=== PATIENT | male | born 1955 | race Caucasian/White ===

== ENCOUNTER 2017-08-17 16:58 | Emergency (ER) | payer MEDICAID ==
[~2017-08-17] VITALS: Ht 172.7 cm; Wt 95.5 kg
[2017-08-17] MEDS ORDERED: naproxen 500mg tablet PO ONE (18:55)
[2017-08-17] MEDS ORDERED: HYDROcodone/acetaminophen 10/325mg tab PO ONE (18:55)
[2017-08-17] MEDS ORDERED: CYCL-1 PO (19:37)
[2017-08-17] MEDS ORDERED: HYDR-565 PO (19:37)
[2017-08-17] MEDS ORDERED: NAPR-56 PO (19:37)
[2017-08-17] MEDS ORDERED: meperidine/PF 50mg/ml syringe IM ONE (19:50)
[2017-08-17 19:58] VITALS: BP 182/103
== END 2017-08-17 20:07 | disposition home or self-care (01) ==
LOC: ER 16:59
DX: S63.501A Unspecified sprain of right wrist, initial encounter (principal); M25.461 Effusion, right knee; Z79.899 Other long term (current) drug therapy; W11.XXXA Fall on and from ladder, initial encounter; Y93.89 Activity, other specified; Y92.89 Other specified places as the place of occurrence of the external cause; Y99.8 Other external cause status
CPT/HCPCS: 29125; 70450; 72125; 73110; 73564; 96372; 99284; A6449; J2175

== ENCOUNTER 2019-09-15 11:35 | Emergency (ER) | payer MEDICAID ==
[~2019-09-15] VITALS: Ht 172.7 cm; Wt 98.0 kg
[~2019-09-15 11:35] MED LIST: CYCL-1 PO
[2019-09-15] MEDS ORDERED: amLODIPine 5mg tablet PO ONE (12:35)
[2019-09-15] MEDS ORDERED: HYDROchlorothiazide 25mg tablet PO ONE (12:35)
[2019-09-15] MEDS ORDERED: amLODIPine 2.5mg tablet PO ONE (12:40)
[2019-09-15 13:11] LABS: BASOPHILS % (AUTO) 0.4 % (0-1); EOSINOPHILS # (AUTO) 0.1 X10'3 (0-0.9); EOSINOPHILS % (AUTO) 1.5 % (0-6); HEMATOCRIT 44.7 % (42.0-52.0); LYMPHOCYTES # (AUTO) 1.8 X10'3 (1.1-4.8); LYMPHOCYTES % (AUTO) 20.7 % (21-51); MEAN CORPUSCULAR HGB CONC 33.5 g/dL (33.0-36.5); MEAN CORPUSCULAR VOLUME 83.4 FL (78-98); MEAN PLATELET VOLUME 6.9 FL (7.4-10.4); MONOCYTES # (AUTO) 0.8 X10'3 (0-0.9); MONOCYTES % (AUTO) 9.6 % (2-12); NEUTROPHILS # (AUTO) 5.8 X10'3 (1.8-7.7); NEUTROPHILS % (AUTO) 67.8 % (42-75); PLATELET COUNT 282 X10'3 (140-440); RED BLOOD COUNT 5.36 X10'6 (4.70-6.10); RED CELL DISTRIBUTION WIDTH 13.6 % (11.5-14.5); WHITE BLOOD COUNT 8.6 X10'3 (4.5-11.0)
[2019-09-15 13:21] VITALS: BP 189/113
[2019-09-15 13:32] LABS: ALANINE AMINOTRANSFERASE 42 U/L (12-78); ALBUMIN 3.7 G/DL (3.4-5.0); ALBUMIN/GLOBULIN RATIO 1.1 (1.1-1.5); ALKALINE PHOSPHATASE 109 IU/L (46-116); ANION GAP 9 (8-16); ASPARTATE AMINO TRANSFERASE 20 U/L (10-37); BILIRUBIN,TOTAL 0.4 MG/DL (0.1-1.0); BLOOD UREA NITROGEN 13 MG/DL (7-18); BUN/CREATININE RATIO 12.4 (5.4-32.0); CALCIUM 8.5 MG/DL (8.5-10.1); CHLORIDE 106 MMOL/L (99-107); CREATININE 1.05 MG/DL (0.60-1.10); GLUCOSE 96 MG/DL (70-104); POTASSIUM 3.9 MMOL/L (3.5-5.1); SODIUM 143 MMOL/L (135-145); TOTAL PROTEIN 7.1 G/DL (6.4-8.2); eGFR 72 ML/MIN
[2019-09-15] MEDS ORDERED: HCTZ25T PO (13:40)
[2019-09-15] MEDS ORDERED: LISI10TA4 PO (13:40)
== END 2019-09-15 13:54 | disposition home or self-care (01) ==
LOC: ER 11:35
DX: I10 Essential (primary) hypertension (principal); R51 Headache; Z72.89 Other problems related to lifestyle; Z87.891 Personal history of nicotine dependence; Z98.890 Other specified postprocedural states; Z79.899 Other long term (current) drug therapy
CPT/HCPCS: 36415; 80053; 84484; 85025; 93005; 99284

== ENCOUNTER 2021-04-15 12:58 | Inpatient (IN) | payer MEDICAID ==
[~2021-04-15] VITALS: Ht 172.7 cm; Wt 97.7 kg
[~2021-04-15 12:58] MED LIST changes: +HYDR25TA5 PO; +LISI10TA27 PO
[2021-04-15] MEDS ORDERED: CefTRIAXone 2gm/D5W 50ml BAG 50 ML IV ONE (14:20)
[2021-04-15] MEDS ORDERED: vancomycin/NS 1 GM ADD-VANTAGE 250 ML IV ONE (14:20)
[2021-04-15] MEDS ORDERED: ondansetron/PF 4mg/2ml inj IV ONE (14:40)
[2021-04-15] MEDS ORDERED: morphine 4 MG/ML inj SYRINge IV ONE (14:40)
[2021-04-15 14:53] LABS: BASOPHILS % (AUTO) 0.3 % (0-1); EOSINOPHILS # (AUTO) 0.2 X10'3 (0-0.9); EOSINOPHILS % (AUTO) 1.9 % (0-6); HEMOGLOBIN 10.5 g/dl (14.0-17.9); LYMPHOCYTES # (AUTO) 1.4 X10'3 (1.1-4.8); LYMPHOCYTES % (AUTO) 15.2 % (21-51); MEAN CORPUSCULAR HEMOGLOBIN 28.1 PG (27.0-31.0); MEAN CORPUSCULAR HGB CONC 34.1 g/dL (33.0-36.5); MEAN CORPUSCULAR VOLUME 82.4 FL (78-98); MEAN PLATELET VOLUME 7.6 FL (7.4-10.4); MONOCYTES # (AUTO) 0.8 X10'3 (0-0.9); MONOCYTES % (AUTO) 8.6 % (2-12); NEUTROPHILS # (AUTO) 6.8 X10'3 (1.8-7.7); PLATELET COUNT 248 X10'3 (140-440); RED BLOOD COUNT 3.76 X10'6 (4.70-6.10); WHITE BLOOD COUNT 9.2 X10'3 (4.5-11.0)
[2021-04-15 15:05] LABS: ALANINE AMINOTRANSFERASE 37 U/L (12-78); ALBUMIN/GLOBULIN RATIO 0.9 (1.1-1.5); ALKALINE PHOSPHATASE 74 IU/L (46-116); ANION GAP 5 (8-16); BILIRUBIN,TOTAL 0.6 MG/DL (0.1-1.0); BLOOD UREA NITROGEN 10 MG/DL (7-18); BUN/CREATININE RATIO 11.8 (5.4-32.0); C-REACTIVE PROTEIN 5.77 MG/DL (0.0-0.5); CALCIUM 8.2 MG/DL (8.5-10.1); CHLORIDE 102 MMOL/L (99-107); CREATININE 0.85 MG/DL (0.60-1.10); GLUCOSE 102 MG/DL (70-104); MAGNESIUM 1.9 MG/DL (1.5-2.4); SODIUM 136 MMOL/L (135-145); TOTAL PROTEIN 6.2 G/DL (6.4-8.2); eGFR > 90 ML/MIN
[2021-04-15 15:07] LABS: ASPARTATE AMINO TRANSFERASE 40 U/L (10-37); POTASSIUM 4.2 MMOL/L (3.5-5.1)
[2021-04-15] MEDS ORDERED: iohexol 300mg/ml 100ml inj. ONE (15:17)
--- NOTE | 2021-04-15 16:20 | NUR ---
Patient assisted to restroom via wheelchair; refused bedside commode.
[2021-04-15] MEDS ORDERED: HYDROmorphone 1 mg/ml syringe IV ONE (17:10)
[2021-04-15] MEDS ORDERED: heparin 10,000 units/1 ML INJ IV ONE ×3 (17:40→18:05)
[2021-04-15] MEDS ORDERED: acetaminophen 325mg tablet PO PRN ×2 (17:55)
[2021-04-15] MEDS ORDERED: ondansetron/PF 4mg/2ml inj IV PRN (17:55)
[2021-04-15] MEDS ORDERED: heparin 25,000 UNIT/250ml bag 250 ML IV SCH (17:55)
[2021-04-15] MEDS ORDERED: magnesium 4gm in 100ml NS 100 ML IV PRN (17:55)
[2021-04-15] MEDS ORDERED: HYDROcodone/acetaminophen 5mg/325mg tablet PO PRN (17:55)
[2021-04-15] MEDS ORDERED: PERFLUTREN PROTEIN-A MICROSPHR (Optison) 0.22 MG/ML 3ML VIAL IV PRN (17:55)
[2021-04-15] MEDS ORDERED: mag hydrox/Alum hydrox/simeth 30ml oral suspension PO PRN (17:55)
[2021-04-15] MEDS ORDERED: heparin 10,000 units/1 ML INJ IV PRN (17:55)
[2021-04-15] MEDS ORDERED: potassium Cl 20 mEq SR tablet PO PRN ×2 (17:55)
[2021-04-15] MEDS ORDERED: magnesium 2GM in 50ml NS 50 ML IV PRN (17:55)
[2021-04-15] MEDS ORDERED: potassium CL 10mEq/100ml bag 100 ML IV PRN (17:55)
[2021-04-15 18:32] LABS: APTT 28 SECONDS (22-32)
[2021-04-15] MEDS: heparin 25,000 UNIT/250ml bag 250 ML IV SCH (18:35)
[2021-04-15] MEDS: K and/or MAG REPLACEMENT MC SCH (19:22)
[2021-04-15] MEDS: docusate sod 100mg capsule PO SCH (20:41)
--- NOTE | 2021-04-15 20:46 | NUR ---
Up to bedside commode.
[2021-04-15] MEDS ORDERED: ASPI-1264 PO (20:59)
[2021-04-15] MEDS ORDERED: FLO0.4C PO (20:59)
[2021-04-15] MEDS ORDERED: LISI5TAB22 PO (20:59)
[2021-04-15 22:00] VITALS: BP 162/77
--- NOTE | 2021-04-15 22:02 | NUR ---
Patient unwilling to use bedside commode and wants to go to the ER bathroom. PT told with weeping surgical wound and heparin running, it is too much of a risk to his safety and that the bedside commode is the option right now. Pt also unhappy that he has not had his flowmax, to ease urination, or food or water. Pt demanded to leave AMA. Pt given a room assignment upstairs in hopes that he would find the bathroom facilities more agreeable. Pt told that if after moving upstairs and talking to the Hospitalist if he still wants to leave AMA he can arrange that throught the hospitalist.
--- NOTE | 2021-04-15 22:05 | NUR ---
Patient came up to the floor from ED co with right knee incision pain. med given. patient is resting in bed call light within reach safety has been implemented, patient will continue monitoring.
[2021-04-15] MEDS: HYDROcodone/acetaminophen 10/325mg tab PO PRN (22:51)
[2021-04-16] MEDS ORDERED: HYDROmorphone 1 mg/ml syringe IV ONE (00:15)
[2021-04-16 02:00] VITALS: BP 122/78
[2021-04-16 02:05] LABS: APTT 73 SECONDS (22-32)
[2021-04-16 06:00] VITALS: BP 158/84
[2021-04-16 06:46] LABS: BASOPHILS % (AUTO) 0.5 % (0-1); EOSINOPHILS # (AUTO) 0.2 X10'3 (0-0.9); EOSINOPHILS % (AUTO) 2.8 % (0-6); HEMATOCRIT 30.8 % (42.0-52.0); HEMOGLOBIN 10.5 g/dl (14.0-17.9); LYMPHOCYTES # (AUTO) 1.7 X10'3 (1.1-4.8); LYMPHOCYTES % (AUTO) 22.6 % (21-51); MEAN CORPUSCULAR HGB CONC 33.9 g/dL (33.0-36.5); MEAN CORPUSCULAR VOLUME 82.6 FL (78-98); MEAN PLATELET VOLUME 7.7 FL (7.4-10.4); MONOCYTES # (AUTO) 0.7 X10'3 (0-0.9); MONOCYTES % (AUTO) 9.7 % (2-12); NEUTROPHILS # (AUTO) 4.8 X10'3 (1.8-7.7); NEUTROPHILS % (AUTO) 64.4 % (42-75); PLATELET COUNT 255 X10'3 (140-440); RED BLOOD COUNT 3.73 X10'6 (4.70-6.10); RED CELL DISTRIBUTION WIDTH 13.9 % (11.5-14.5); WHITE BLOOD COUNT 7.5 X10'3 (4.5-11.0)
[2021-04-16] MEDS: HYDROcodone/acetaminophen 10/325mg tab PO PRN ×3 (07:26→21:53)
[2021-04-16] MEDS: heparin 25,000 UNIT/250ml bag 250 ML IV SCH ×2 (07:29→21:51)
[2021-04-16 07:35] LABS: ALANINE AMINOTRANSFERASE 48 U/L (12-78); ALBUMIN 3.1 G/DL (3.4-5.0); ALBUMIN/GLOBULIN RATIO 1.1 (1.1-1.5); ALKALINE PHOSPHATASE 70 IU/L (46-116); ANION GAP 8 (8-16); ASPARTATE AMINO TRANSFERASE 40 U/L (10-37); BILIRUBIN,TOTAL 0.7 MG/DL (0.1-1.0); BLOOD UREA NITROGEN 10 MG/DL (7-18); BUN/CREATININE RATIO 12.5 (5.4-32.0); CALCIUM 8.3 MG/DL (8.5-10.1); CHLORIDE 104 MMOL/L (99-107); GLUCOSE 107 MG/DL (70-104); POTASSIUM 4.1 MMOL/L (3.5-5.1); SODIUM 140 MMOL/L (135-145); TOTAL PROTEIN 5.9 G/DL (6.4-8.2); eGFR > 90 ML/MIN
[2021-04-16] MEDS: K and/or MAG REPLACEMENT MC SCH ×2 (08:07→20:00)
[2021-04-16] MEDS: docusate sod 100mg capsule PO SCH ×2 (09:09→21:52)
[2021-04-16 11:00] VITALS: BP 153/78
[2021-04-16 15:00] VITALS: BP 172/101
[2021-04-16] MEDS ORDERED: magnesium hydroxide 30ml (MOM) UD suspension PO PRN (15:45)
--- NOTE | 2021-04-16 16:00 | NUR ---
pt's BP is elevated and he is complaining of pain 9/10. Lewis 10mg given and ice pack applied to right knee. Will continue to monitor.
--- NOTE | 2021-04-16 18:33 | NUR ---
Problems reprioritized. Patient report given, questions answered & plan of care reviewed with Heather.
[2021-04-16] MEDS ORDERED: hydrALAZINE 20mg/ml inj. IV PRN (18:45)
[2021-04-17 06:00] VITALS: BP 132/66
[2021-04-17 06:01] LABS: BASOPHILS % (AUTO) 0.3 % (0-1); EOSINOPHILS # (AUTO) 0.2 X10'3 (0-0.9); EOSINOPHILS % (AUTO) 1.9 % (0-6); HEMATOCRIT 30.4 % (42.0-52.0); HEMOGLOBIN 10.4 g/dl (14.0-17.9); LYMPHOCYTES # (AUTO) 1.7 X10'3 (1.1-4.8); LYMPHOCYTES % (AUTO) 18.9 % (21-51); MEAN CORPUSCULAR HEMOGLOBIN 27.8 PG (27.0-31.0); MEAN CORPUSCULAR HGB CONC 34.2 g/dL (33.0-36.5); MEAN CORPUSCULAR VOLUME 81.3 FL (78-98); MEAN PLATELET VOLUME 7.2 FL (7.4-10.4); MONOCYTES # (AUTO) 0.9 X10'3 (0-0.9); MONOCYTES % (AUTO) 9.8 % (2-12); NEUTROPHILS % (AUTO) 69.1 % (42-75); PLATELET COUNT 287 X10'3 (140-440); RED BLOOD COUNT 3.74 X10'6 (4.70-6.10); WHITE BLOOD COUNT 8.7 X10'3 (4.5-11.0)
[2021-04-17 06:39] LABS: ALANINE AMINOTRANSFERASE 58 U/L (12-78); ALKALINE PHOSPHATASE 70 IU/L (46-116); ANION GAP 8 (8-16); ASPARTATE AMINO TRANSFERASE 34 U/L (10-37); BILIRUBIN,TOTAL 0.8 MG/DL (0.1-1.0); BLOOD UREA NITROGEN 15 MG/DL (7-18); BUN/CREATININE RATIO 15.6 (5.4-32.0); CALCIUM 8.4 MG/DL (8.5-10.1); CHLORIDE 104 MMOL/L (99-107); CREATININE 0.96 MG/DL (0.60-1.10); GLUCOSE 115 MG/DL (70-104); POTASSIUM 4.3 MMOL/L (3.5-5.1); SODIUM 138 MMOL/L (135-145); TOTAL CARBON DIOXIDE 26.3 MMOL/L (24-32); eGFR 79 ML/MIN
[2021-04-17] MEDS: HYDROcodone/acetaminophen 10/325mg tab PO PRN ×3 (07:20→20:01)
[2021-04-17] MEDS: tamsulosin 0.4mg capsule PO SCH (07:21)
[2021-04-17] MEDS: docusate sod 100mg capsule PO SCH ×2 (07:21→20:01)
[2021-04-17] MEDS: lisinopril 5mg tablet PO SCH (07:22)
[2021-04-17] MEDS: K and/or MAG REPLACEMENT MC SCH ×2 (07:23→19:53)
[2021-04-17 11:00] VITALS: BP 161/98
[2021-04-17] MEDS: heparin 25,000 UNIT/250ml bag 250 ML IV SCH (11:45)
--- NOTE | 2021-04-17 12:56 | NUR ---
Paged dr marlow regarding ptt PAGER ID: [phone] MESSAGE: [phone]. 11am ptt was 25 but pump was unplugged. ptt has been in therapeutic range the entire time. pls advise. August Rn pcu [id number]
--- NOTE | 2021-04-17 14:15 | NUR ---
Did not receive call back from Dr marlow regarding ptt. Spoke with Ale from pharmacy. Will put in for redraw of ptt at 1630, as heparin as been running at 18 since approx 1230pm.
[2021-04-17 15:00] VITALS: BP 132/77
--- NOTE | 2021-04-17 17:43 | NUR ---
Spoke with pharmacist angeli about ptt results at 1630 of 38. it is still not theraputic. heparin is running at 18. Advised to not increase the rate from the machine being turned off this morning, but to continue at current rate of 18 and redraw in 6 hours. Orders for redraw at 223 put entered.
[2021-04-17 18:00] VITALS: BP 150/83
--- NOTE | 2021-04-17 18:53 | NUR ---
Problems reprioritized. Patient report given, questions answered & plan of care reviewed with SAAD Romero.
[2021-04-17] MEDS: cephalexin 500mg capsule PO SCH (20:00)
[2021-04-17 22:00] VITALS: BP 149/86
[2021-04-17] MEDS: heparin 10,000 units/1 ML INJ IV PRN (23:54)
[2021-04-18] MEDS: heparin 25,000 UNIT/250ml bag 250 ML IV SCH ×2 (01:50→13:28)
[2021-04-18] MEDS: cephalexin 500mg capsule PO SCH ×4 (01:50→20:36)
[2021-04-18 02:00] VITALS: BP 153/75
[2021-04-18 06:00] VITALS: BP 137/84
[2021-04-18 06:37] LABS: BASOPHILS # (AUTO) 0.1 X10'3 (0-0.2); BASOPHILS % (AUTO) 0.6 % (0-1); EOSINOPHILS # (AUTO) 0.2 X10'3 (0-0.9); HEMATOCRIT 31.2 % (42.0-52.0); HEMOGLOBIN 10.7 g/dl (14.0-17.9); LYMPHOCYTES # (AUTO) 1.7 X10'3 (1.1-4.8); LYMPHOCYTES % (AUTO) 16.6 % (21-51); MEAN CORPUSCULAR HEMOGLOBIN 28.2 PG (27.0-31.0); MEAN CORPUSCULAR HGB CONC 34.2 g/dL (33.0-36.5); MEAN CORPUSCULAR VOLUME 82.3 FL (78-98); MEAN PLATELET VOLUME 7.4 FL (7.4-10.4); MONOCYTES # (AUTO) 1.2 X10'3 (0-0.9); MONOCYTES % (AUTO) 11.5 % (2-12); NEUTROPHILS % (AUTO) 69.3 % (42-75); PLATELET COUNT 334 X10'3 (140-440); RED CELL DISTRIBUTION WIDTH 13.9 % (11.5-14.5)
[2021-04-18 06:46] LABS: ALANINE AMINOTRANSFERASE 59 U/L (12-78); ALBUMIN 2.9 G/DL (3.4-5.0); ALBUMIN/GLOBULIN RATIO 0.9 (1.1-1.5); ALKALINE PHOSPHATASE 70 IU/L (46-116); ANION GAP 9 (8-16); ASPARTATE AMINO TRANSFERASE 38 U/L (10-37); BILIRUBIN,TOTAL 0.9 MG/DL (0.1-1.0); BLOOD UREA NITROGEN 15 MG/DL (7-18); BUN/CREATININE RATIO 18.3 (5.4-32.0); CALCIUM 8.5 MG/DL (8.5-10.1); CHLORIDE 104 MMOL/L (99-107); CREATININE 0.82 MG/DL (0.60-1.10); GLUCOSE 121 MG/DL (70-104); MAGNESIUM 2.1 MG/DL (1.5-2.4); POTASSIUM 4.5 MMOL/L (3.5-5.1); SODIUM 137 MMOL/L (135-145); TOTAL CARBON DIOXIDE 23.8 MMOL/L (24-32); eGFR > 90 ML/MIN
[2021-04-18] MEDS: tamsulosin 0.4mg capsule PO SCH (08:52)
[2021-04-18] MEDS: HYDROcodone/acetaminophen 10/325mg tab PO PRN ×3 (08:52→20:36)
[2021-04-18] MEDS: docusate sod 100mg capsule PO SCH ×2 (08:52→20:36)
[2021-04-18] MEDS: lisinopril 5mg tablet PO SCH (08:52)
[2021-04-18] MEDS: K and/or MAG REPLACEMENT MC SCH ×2 (08:53→19:11)
[2021-04-18 11:00] VITALS: BP 153/84
[2021-04-18 18:00] VITALS: BP 154/91
--- NOTE | 2021-04-18 18:23 | NUR ---
Problems reprioritized. Patient report given, questions answered & plan of care reviewed with SAAD Romero.
[2021-04-18 22:00] VITALS: BP 136/72
[2021-04-19 02:00] VITALS: BP 136/60
[2021-04-19] MEDS: cephalexin 500mg capsule PO SCH ×3 (02:45→13:58)
[2021-04-19 06:00] VITALS: BP 113/66
[2021-04-19 07:10] LABS: BASOPHILS % (AUTO) 0.4 % (0-1); EOSINOPHILS # (AUTO) 0.2 X10'3 (0-0.9); EOSINOPHILS % (AUTO) 1.6 % (0-6); HEMATOCRIT 30.8 % (42.0-52.0); HEMOGLOBIN 10.4 g/dl (14.0-17.9); LYMPHOCYTES # (AUTO) 1.4 X10'3 (1.1-4.8); LYMPHOCYTES % (AUTO) 12.6 % (21-51); MEAN CORPUSCULAR HEMOGLOBIN 27.5 PG (27.0-31.0); MEAN CORPUSCULAR HGB CONC 33.9 g/dL (33.0-36.5); MEAN CORPUSCULAR VOLUME 81.3 FL (78-98); MONOCYTES # (AUTO) 1.2 X10'3 (0-0.9); MONOCYTES % (AUTO) 10.8 % (2-12); NEUTROPHILS # (AUTO) 8.5 X10'3 (1.8-7.7); NEUTROPHILS % (AUTO) 74.6 % (42-75); PLATELET COUNT 396 X10'3 (140-440); RED BLOOD COUNT 3.79 X10'6 (4.70-6.10); RED CELL DISTRIBUTION WIDTH 13.8 % (11.5-14.5); WHITE BLOOD COUNT 11.4 X10'3 (4.5-11.0)
[2021-04-19 07:27] LABS: ALANINE AMINOTRANSFERASE 78 U/L (12-78); ALBUMIN 3.1 G/DL (3.4-5.0); ALKALINE PHOSPHATASE 69 IU/L (46-116); ANION GAP 9 (8-16); ASPARTATE AMINO TRANSFERASE 42 U/L (10-37); BLOOD UREA NITROGEN 18 MG/DL (7-18); BUN/CREATININE RATIO 21.2 (5.4-32.0); CALCIUM 8.4 MG/DL (8.5-10.1); CHLORIDE 102 MMOL/L (99-107); CREATININE 0.85 MG/DL (0.60-1.10); GLUCOSE 122 MG/DL (70-104); MAGNESIUM 2.1 MG/DL (1.5-2.4); POTASSIUM 4.5 MMOL/L (3.5-5.1); SODIUM 135 MMOL/L (135-145); TOTAL CARBON DIOXIDE 24.3 MMOL/L (24-32); TOTAL PROTEIN 6.3 G/DL (6.4-8.2); eGFR > 90 ML/MIN
[2021-04-19] MEDS: HYDROcodone/acetaminophen 10/325mg tab PO PRN ×2 (07:30→13:57)
[2021-04-19] MEDS: tamsulosin 0.4mg capsule PO SCH (07:30)
[2021-04-19] MEDS: lisinopril 5mg tablet PO SCH (07:31)
[2021-04-19] MEDS: docusate sod 100mg capsule PO SCH (07:31)
[2021-04-19] MEDS: K and/or MAG REPLACEMENT MC SCH (07:32)
[2021-04-19 11:00] VITALS: BP 114/67
[2021-04-19] MEDS ORDERED: CEPH-585 PO (12:55)
[2021-04-19] MEDS ORDERED: APIX5TAB3 PO (12:55)
--- NOTE | 2021-04-19 12:55 | NUR ---
Initial: Pper physician note pt admit for right knee hemarthrosis s/p recent right TKA 04/12, right small pulmonary embolism, and right DVT. Per [facility] note surgical wound is full thickness well approximated with minimal drainage with tape related skin tears. Pt on a heart healthy diet and eating well with mostly 100% PO intake throughout LOS meeting estimated nutrient needs. Per EMR pt constipated with LBM 04/12. Pt receiving routine bowel care BID with additional PRN bowel care available. D/w dietary to send prunes and prune juice with next meal to assist with bowel regularity. Will continue to follow and monitor need for further nutrition intervention. Recommendations: 1) Continue heart healthy diet; advance to regular as medically indicated 2) Monitor need for additional protein 3) Routine bowel care 4) Scaled weight this admit; weekly scaled weights thereafter Addendum: 04/19/21 at [address] Amended: Links added.
[2021-04-19] MEDS: heparin 10,000 units/1 ML INJ IV PRN (13:48)
[2021-04-19] MEDS: heparin 25,000 UNIT/250ml bag 250 ML IV SCH (13:49)
[2021-04-19] MEDS ORDERED: HYDR-3972 PO (14:03)
== END 2021-04-19 18:30 | disposition home health service (06) | DRG 349 ==
LOC: ER 13:00 → ED HOLD 18:11 → PCU 3S 22:00
PROVIDERS: ADMIT Family Medicine; ATTEND Family Medicine
PROC: BW251ZZ Computerized Tomography (CT Scan) of Chest, Abdomen and Pelvis using Low Osmolar Contrast (ICD-10-PCS; principal; 2021-04-15)
DX: T84.83XA Hemorrhage due to internal orthopedic prosthetic devices, implants and grafts, initial encounter (principal); I26.99 Other pulmonary embolism without acute cor pulmonale; I82.441 Acute embolism and thrombosis of right tibial vein; D64.9 Anemia, unspecified; I10 Essential (primary) hypertension; Z96.651 Presence of right artificial knee joint; N40.0 Benign prostatic hyperplasia without lower urinary tract symptoms; Z83.3 Family history of diabetes mellitus; Y83.1 Surgical operation with implant of artificial internal device as the cause of abnormal reaction of the patient, or of later complication, without mention of misadventure at the time of the procedure; Z87.891 Personal history of nicotine dependence; Z79.899 Other long term (current) drug therapy; Y92.89 Other specified places as the place of occurrence of the external cause
CPT/HCPCS: 36415; 71045; 71260; 73701; 74177; 80053; 83605; 83735; 84145; 85025; 85610; 85651; 85730; 86140; 87040; 87081; 93005; 93306; 93971; 96365; 96366; 96368; 96375; 97110; 97161; 97530; 99285; G0378; J0696; J1170; J1644; J2270; J2405; J3370; Q9967

== ENCOUNTER 2022-11-25 12:30 | Emergency (ER) | payer MEDICAID ==
[~2022-11-25] VITALS: Ht 175.3 cm; Wt 120.0 kg
[~2022-11-25 12:30] MED LIST changes: +APIX5TAB3 PO; +CEPH-585 PO; -CYCL-1 PO; +FLO0.4C PO; -HYDR25TA5 PO; -LISI10TA27 PO; +LISI5TAB22 PO
[2022-11-25 12:40] VITALS: TEMP 97.8
[2022-11-25 13:17] LABS: BASOPHILS # (AUTO) 0.1 X10'3 (0-0.2); BASOPHILS % (AUTO) 0.5 % (0-1); EOSINOPHILS # (AUTO) 0.2 X10'3 (0-0.9); EOSINOPHILS % (AUTO) 1.5 % (0-6); HEMATOCRIT 45.3 % (42.0-52.0); HEMOGLOBIN 15.1 g/dl (14.0-17.9); LYMPHOCYTES # (AUTO) 1.5 X10'3 (1.1-4.8); LYMPHOCYTES % (AUTO) 15.1 % (21-51); MEAN CORPUSCULAR HEMOGLOBIN 28.7 PG (27.0-31.0); MEAN CORPUSCULAR HGB CONC 33.3 g/dL (33.0-36.5); MEAN CORPUSCULAR VOLUME 86.2 FL (78-98); MEAN PLATELET VOLUME 7.2 FL (7.4-10.4); MONOCYTES # (AUTO) 1.1 X10'3 (0-0.9); MONOCYTES % (AUTO) 10.5 % (2-12); NEUTROPHILS # (AUTO) 7.3 X10'3 (1.8-7.7); NEUTROPHILS % (AUTO) 72.4 % (42-75); PLATELET COUNT 269 X10'3 (140-440); RED BLOOD COUNT 5.26 X10'6 (4.70-6.10); RED CELL DISTRIBUTION WIDTH 14.2 % (11.5-14.5); WHITE BLOOD COUNT 10.1 X10'3 (4.5-11.0)
[2022-11-25 13:43] LABS: ALANINE AMINOTRANSFERASE 28 U/L (12-78); ALBUMIN 3.5 G/DL (3.4-5.0); ALKALINE PHOSPHATASE 111 IU/L (46-116); ANION GAP 9 (8-16); ASPARTATE AMINO TRANSFERASE 16 U/L (10-37); BILIRUBIN,TOTAL 0.6 MG/DL (0.1-1.0); BLOOD UREA NITROGEN 12 MG/DL (7-18); BUN/CREATININE RATIO 12.5 (10.0-20.0); CHLORIDE 103 MMOL/L (99-107); CREATININE 0.96 MG/DL (0.60-1.10); GLUCOSE 106 MG/DL (70-104); POTASSIUM 3.8 MMOL/L (3.5-5.1); PRO BRAIN NATRIURETIC PEPTIDE 314 PG/ML (0-125); SODIUM 136 MMOL/L (135-145); TOTAL CARBON DIOXIDE 24.4 MMOL/L (24-32); eCRCL 77 ML/MIN; eGFR 79 ML/MIN
[2022-11-25 18:42] VITALS: BP 161/91; PULSE 70; RESP 18; O2SAT 95
[2022-11-25] MEDS ORDERED: acetaminophen 325mg tablet PO ONE (19:15)
[2022-11-25] MEDS ORDERED: ibuprofen 200mg tablet PO ONE (19:15)
[2022-11-25 22:20] LABS: BILIRUBIN,URINE SMALL (Neg); CLARITY,URINE SLIGHTLY CLOUDY (Clear); COLOR,URINE YELLOW (Yellow); GLUCOSE, URINE NEGATIVE (Neg); KETONES,URINE NEGATIVE (Neg); LEUKOCYTE ESTERASE ,URINE NEGATIVE (Neg); NITRITES, URINE NEGATIVE (Neg); OCCULT BLOOD,URINE NEGATIVE (Neg); PH,URINE 5.5 (4.8-8.0); PROTEIN,URINE TRACE mg/dl (Neg); UROBILINOGEN,URINE 0.2 E.U/dL (0.2-1.0)
[2022-11-25 22:35] LABS: UA COLLECTION TYPE CLN CATCH MIDSTREAM
[2022-11-25 22:36] LABS: MUCUS STRANDS MANY /LPF (Neg); SQUAMOUS EPITHELIAL CELL,UR FEW /LPF (FEW)
[2022-11-25 22:37] LABS: AMORPHOUS URATES 3+; CAL OXALATE CRYSTALS 1+ /HPF (NEGATIVE)
[2022-11-25 22:38] LABS: BACTERIA,URINE NONE SEEN /HPF (Neg); RBC,URINE 0-2 /HPF (0-2); WBC,URINE 0-4 /HPF (0-4)
[2022-11-25] MEDS ORDERED: sulfamethoxazole/trimethoprim DS (800/160mg) tablet PO ONE (23:55)
[2022-11-25] MEDS ORDERED: SULF1TAB49 PO (23:57)
== END 2022-11-26 00:18 | disposition home or self-care (01) ==
LOC: ER 12:30
DX: L03.116 Cellulitis of left lower limb (principal); R07.9 Chest pain, unspecified; I10 Essential (primary) hypertension; Z79.899 Other long term (current) drug therapy
CPT/HCPCS: 36415; 71045; 80053; 81001; 83880; 84484; 85025; 93005; 93971; 99285